=== PATIENT | female | born 1990 | race Two or more races ===

== ENCOUNTER 2022-06-04 15:45 | Emergency (ER) | payer SELFPAY ==
[2022-06-04 17:15] LABS: Urine Bacteria NONE SEEN /hpf (None Seen); Urine Blood 3+ /uL (Negative); Urine Specific Gravity 1.027 (1.001-1.035); Urine WBC 7 /hpf (0 - 5)
[2022-06-04 20:18] LABS: Basophils # (auto) 0.1 10 ^3/uL (0-0.2); Basophils % (auto) 0.6 % (0.0-2.0); Eosinophils # (auto) 0.1 10 ^3/uL (0-0.8); Eosinophils % (auto) 0.9 % (0.0-7.0); Hematocrit 39.8 % (36.0-46.0); Hemoglobin 13.3 g/dL (12.2-16.2); Lymphocytes # (auto) 3.1 10 ^3/uL (0.4-5.4); Lymphocytes % (auto) 30.6 % (10.0-50.0); Mean Corpuscular Hemoglobin 29.8 pg (28.0-32.0); Mean Corpuscular Hgb Conc. 33.4 g/dL (32.0-36.0); Mean Corpuscular Volume 89.4 fL (80.0-100.0); Monocytes # (auto) 0.7 10 ^3/uL (0-1.3); Monocytes % (auto) 6.5 % (0.0-12.0); Neutrophils # (auto) 6.1 10 ^3/uL (1.6-8.6); Neutrophils % (auto) 61.4 % (37.0-80.0); Nucleated Red Blood Cells % 0.1 %; Red Blood Cells 4.45 10^6/uL (4.0-5.20); Red Cell Distribution Width 13.3 % (11.8-14.3)
[2022-06-04 20:31] LABS: Albumin 4.1 g/dL (3.4-5.0); BUN/Creatinine Ratio 24.6; Calcium 8.9 mg/dL (8.5-10.1); Potassium 4.2 mmol/L (3.5-5.1)
[2022-06-04 20:33] LABS: Bilirubin, Total 0.2 mg/dL (0.2-1.0)
[2022-06-04] MEDS ORDERED: MEDR5TAB28 PO (21:54)
[2022-06-04 22:09] VITALS: BP 136/81
== END 2022-06-04 22:11 | disposition home or self-care (01) ==
LOC: ER 15:45
DX: N94.6 Dysmenorrhea, unspecified (principal); R10.2 Pelvic and perineal pain
CPT/HCPCS: 36415; 76856; 80053; 81001; 84702; 85025; 86850; 86900; 86901

== ENCOUNTER 2022-10-22 20:05 | Emergency (ER) | payer MEDICAID, OTHER ==
[~2022-10-22] VITALS: Ht 154.9 cm; Wt 87.1 kg
[~2022-10-22 20:05] MED LIST: MEDR5TAB28 PO
[2022-10-22 20:43] LABS: Basophils # (auto) 0.1 10 ^3/uL (0-0.2); Basophils % (auto) 0.4 % (0.0-2.0); Eosinophils # (auto) 0.1 10 ^3/uL (0-0.8); Eosinophils % (auto) 0.6 % (0.0-7.0); Hematocrit 38.8 % (36.0-46.0); Hemoglobin 12.9 g/dL (12.2-16.2); Lymphocytes % (auto) 22.2 % (10.0-50.0); Mean Corpuscular Hemoglobin 30.5 pg (28.0-32.0); Mean Corpuscular Hgb Conc. 33.4 g/dL (32.0-36.0); Mean Corpuscular Volume 91.2 fL (80.0-100.0); Monocytes # (auto) 0.9 10 ^3/uL (0-1.3); Monocytes % (auto) 6.3 % (0.0-12.0); Neutrophils # (auto) 9.6 10 ^3/uL (1.6-8.6); Neutrophils % (auto) 70.5 % (37.0-80.0); Nucleated Red Blood Cells % 0.2 %; Red Blood Cells 4.25 10^6/uL (4.0-5.20); White Blood Cell 13.6 10^3/uL (4.4-10.8)
[2022-10-22 20:46] LABS: Urine Bacteria FEW /hpf (None Seen); Urine Blood TRACE /uL (Negative); Urine Specific Gravity 1.012 (1.001-1.035); Urine WBC 24 /hpf (0 - 5)
[2022-10-22 21:02] LABS: Albumin 3.6 g/dL (3.4-5.0); Calcium 8.9 mg/dL (8.5-10.1)
[2022-10-22 21:05] LABS: BUN/Creatinine Ratio 17.5 (10.0-20.0); Bilirubin, Total 0.2 mg/dL (0.2-1.0); Total Protein 7.4 g/dL (6.4-8.2)
[2022-10-22] MEDS ORDERED: NITR-87 PO (22:46)
[2022-10-23 00:50] VITALS: BP 125/73
== END 2022-10-23 00:57 | disposition home or self-care (01) ==
LOC: ER 20:05
DX: O20.0 Threatened abortion (principal); N39.0 Urinary tract infection, site not specified; Z3A.01 Less than 8 weeks gestation of pregnancy; Z79.899 Other long term (current) drug therapy
CPT/HCPCS: 36415; 76801; 76817; 80053; 81001; 83690; 84702; 85025

== ENCOUNTER 2022-12-30 23:03 | Emergency (ER) | payer MEDICAID ==
[~2022-12-30] VITALS: Ht 160 cm; Wt 88.0 kg
[~2022-12-30 23:03] MED LIST changes: +NITR-87 PO
[2022-12-31 00:11] LABS: Basophils # (auto) 0.1 10 ^3/uL (0-0.2); Basophils % (auto) 0.7 % (0.0-2.0); Eosinophils # (auto) 0.1 10 ^3/uL (0-0.8); Eosinophils % (auto) 1.2 % (0.0-7.0); Hematocrit 36.3 % (36.0-46.0); Hemoglobin 12.5 g/dL (12.2-16.2); Lymphocytes # (auto) 3.4 10 ^3/uL (0.4-5.4); Lymphocytes % (auto) 28.7 % (10.0-50.0); Mean Corpuscular Hemoglobin 32.3 pg (28.0-32.0); Mean Corpuscular Hgb Conc. 34.5 g/dL (32.0-36.0); Mean Corpuscular Volume 93.5 fL (80.0-100.0); Monocytes # (auto) 0.9 10 ^3/uL (0-1.3); Monocytes % (auto) 7.9 % (0.0-12.0); Neutrophils # (auto) 7.4 10 ^3/uL (1.6-8.6); Neutrophils % (auto) 61.5 % (37.0-80.0); Nucleated Red Blood Cells % 0.1 %; Red Blood Cells 3.88 10^6/uL (4.0-5.20); Red Cell Distribution Width 13.5 % (11.8-14.3); White Blood Cell 11.9 10^3/uL (4.4-10.8)
[2022-12-31 00:27] LABS: Alanine Aminotransferase 28 U/L (7-40); Albumin 4.4 g/dL (3.2-4.8); Alkaline Phosphatase 74 U/L (46-116); Anion Gap 5 (5-15); Aspartate Aminotransferase 14 U/L (13-40); BUN/Creatinine Ratio 10.2 (10.0-20.0); Bilirubin, Total 0.2 mg/dL (0.2-1.0); Blood Urea Nitrogen 5 mg/dL (9-23); Calcium 9.2 mg/dL (8.7-10.4); Carbon Dioxide 23 mmol/L (20-30); Chloride 107 mmol/L (98-107); Glucose 109 mg/dL (74-106); Lipase 43 U/L (12-53); Potassium 4.1 mmol/L (3.5-5.1); Sodium 135 mmol/L (136-145)
[2022-12-31 00:28] LABS: Total Protein 6.5 g/dL (5.7-8.2)
[2022-12-31 01:07] LABS: Urine Bacteria FEW /hpf (None Seen); Urine Blood Negative /uL (Negative); Urine Clarity Clear (Clear); Urine Mucus FEW (None Seen); Urine Protein, UAD Negative (Negative); Urine Specific Gravity 1.006 (1.001-1.035); Urine Urobilinogen Normal (Negative); Urine WBC <1 /hpf (0 - 5)
[2022-12-31 01:08] LABS: Urine Color Straw (Yellow)
[2022-12-31] MEDS ORDERED: ACETAMINOPHEN 500 MG TAB PO ONE (07:00)
[2022-12-31 08:00] VITALS: PULSE 69; RESP 18; TEMP 98.2; O2SAT 98
[2022-12-31] MEDS ORDERED: SODIUM CHLORIDE 0.9% 1,000 ML IV ONE (08:45)
[2022-12-31 10:00] VITALS: BP 109/64; PULSE 70; RESP 13; O2SAT 100
== END 2022-12-31 10:36 | disposition home or self-care (01) ==
LOC: ER 23:03
DX: O26.892 Other specified pregnancy related conditions, second trimester (principal); R10.2 Pelvic and perineal pain; R30.0 Dysuria; R35.0 Frequency of micturition; Z79.899 Other long term (current) drug therapy; Z3A.18 18 weeks gestation of pregnancy
CPT/HCPCS: 36415; 76805; 76817; 80053; 81001; 83690; 84702; 85025; 96360; 99284; J7030

== ENCOUNTER 2023-04-16 14:30 | Observation (INO) | payer MEDICAID ==
[2023-04-16] MEDS ORDERED: PREN1TAB71 OR (14:52)
[2023-04-16 16:33] LABS: Basophils # (auto) 0 10 ^3/uL (0-0.2); Basophils % (auto) 0.4 % (0.0-2.0); Eosinophils # (auto) 0.1 10 ^3/uL (0-0.8); Eosinophils % (auto) 1.1 % (0.0-7.0); Hemoglobin 12.3 g/dL (12.2-16.2); Lymphocytes # (auto) 2.1 10 ^3/uL (0.4-5.4); Lymphocytes % (auto) 20.7 % (10.0-50.0); Mean Corpuscular Hemoglobin 32.8 pg (28.0-32.0); Mean Corpuscular Hgb Conc. 34.3 g/dL (32.0-36.0); Mean Corpuscular Volume 95.7 fL (80.0-100.0); Monocytes # (auto) 0.9 10 ^3/uL (0-1.3); Monocytes % (auto) 9.2 % (0.0-12.0); Neutrophils # (auto) 6.8 10 ^3/uL (1.6-8.6); Neutrophils % (auto) 68.6 % (37.0-80.0); Red Blood Cells 3.76 10^6/uL (4.0-5.20); Red Cell Distribution Width 13.3 % (11.8-14.3); White Blood Cell 9.9 10^3/uL (4.4-10.8)
[2023-04-16 16:51] LABS: Protein, Urine 8.6 mg/dL (0.0-11.9)
[2023-04-16 16:54] LABS: Creatinine, Urine 40.41 mg/dL (30.0-125.0); Urine Protein/Creatinine Ratio 0.21
[2023-04-16 16:56] LABS: Chloride 107 mmol/L (98-107)
[2023-04-16 16:57] LABS: INR 0.94 (0.9-1.15); Partial Thromboplastin Time 29.3 SEC (24.5-34.5); Prothrombin Time 9.9 sec (9.3-11.8)
[2023-04-16 17:05] LABS: Urine Bacteria FEW /hpf (None Seen); Urine Blood Negative /uL (Negative); Urine Clarity Clear (Clear); Urine Color Yellow (Yellow); Urine Protein, UAD Negative (Negative); Urine Specific Gravity 1.013 (1.001-1.035); Urine Urobilinogen Normal (Negative); Urine WBC 1 /hpf (0 - 5); Urine pH 6.5 (5.0-8.0)
[2023-04-16 17:09] LABS: Uric Acid 3.3 mg/dL (3.1-7.8)
[2023-04-16 17:16] LABS: Alanine Aminotransferase 20 U/L (7-40); Albumin 3.9 g/dL (3.2-4.8); Alkaline Phosphatase 147 U/L (46-116); Anion Gap 8 (5-15); Aspartate Aminotransferase 17 U/L (13-40); BUN/Creatinine Ratio 11.1 (10.0-20.0); Bilirubin, Total 0.2 mg/dL (0.2-1.0); Blood Urea Nitrogen 5 mg/dL (9-23); Calcium 8.9 mg/dL (8.7-10.4); Carbon Dioxide 22 mmol/L (20-30); Glucose 70 mg/dL (74-106); Potassium 3.8 mmol/L (3.5-5.1); Sodium 137 mmol/L (136-145); Total Protein 6.5 g/dL (5.7-8.2)
== END 2023-04-16 17:41 | disposition home or self-care (01) ==
LOC: LDRP 14:30
PROVIDERS: ADMIT Obstetrics & Gynecology; ATTEND Obstetrics & Gynecology
DX: O26.893 Other specified pregnancy related conditions, third trimester (principal); R03.0 Elevated blood-pressure reading, without diagnosis of hypertension; Z3A.32 32 weeks gestation of pregnancy; Z79.899 Other long term (current) drug therapy
CPT/HCPCS: 36415; 59025; 76818; 80053; 81001; 81002; 82570; 84156; 84550; 85025; 85610; 85730; G0378

== ENCOUNTER 2023-05-26 19:58 | Observation (INO) | payer MEDICAID ==
[~2023-05-26 19:58] MED LIST changes: +PREN1TAB71 OR
== END 2023-05-26 21:11 | disposition home or self-care (01) ==
LOC: LDRP 19:58
PROVIDERS: ADMIT Obstetrics & Gynecology; ATTEND Obstetrics & Gynecology
DX: O47.1 False labor at or after 37 completed weeks of gestation (principal); O62.9 Abnormality of forces of labor, unspecified; O26.893 Other specified pregnancy related conditions, third trimester; R10.2 Pelvic and perineal pain; Z3A.38 38 weeks gestation of pregnancy
CPT/HCPCS: 59025; 81002; 94760; G0378

== ENCOUNTER 2023-05-28 17:50 | Observation (INO) | payer MEDICAID ==
[~2023-05-28] VITALS: Ht 167.6 cm; Wt 104.3 kg
[2023-05-28 18:48] LABS: Basophils # (auto) 0 10 ^3/uL (0-0.2); Basophils % (auto) 0.2 % (0.0-2.0); Eosinophils # (auto) 0.1 10 ^3/uL (0-0.8); Eosinophils % (auto) 0.4 % (0.0-7.0); Hematocrit 38.6 % (36.0-46.0); Hemoglobin 12.8 g/dL (12.2-16.2); Lymphocytes # (auto) 1.3 10 ^3/uL (0.4-5.4); Lymphocytes % (auto) 11.1 % (10.0-50.0); Mean Corpuscular Hemoglobin 31.7 pg (28.0-32.0); Mean Corpuscular Hgb Conc. 33.1 g/dL (32.0-36.0); Mean Corpuscular Volume 95.9 fL (80.0-100.0); Monocytes # (auto) 0.8 10 ^3/uL (0-1.3); Monocytes % (auto) 6.2 % (0.0-12.0); Neutrophils # (auto) 9.9 10 ^3/uL (1.6-8.6); Neutrophils % (auto) 82.1 % (37.0-80.0); Red Blood Cells 4.03 10^6/uL (4.0-5.20); Red Cell Distribution Width 13.5 % (11.8-14.3); White Blood Cell 12.1 10^3/uL (4.4-10.8)
[2023-05-28 19:02] LABS: Protein, Urine 26.1 mg/dL (0.0-11.9)
[2023-05-28 19:03] LABS: INR 0.94 (0.9-1.15); Prothrombin Time 9.9 sec (9.3-11.8)
[2023-05-28 19:05] LABS: Creatinine, Urine 201.35 mg/dL (30.0-125.0); Urine Protein/Creatinine Ratio 0.13
[2023-05-28 19:08] LABS: Alanine Aminotransferase 22 U/L (7-40); Albumin 3.8 g/dL (3.2-4.8); Alkaline Phosphatase 205 U/L (46-116); Anion Gap 8 (5-15); Aspartate Aminotransferase 19 U/L (13-40); Bilirubin, Total 0.4 mg/dL (0.2-1.0); Calcium 8.6 mg/dL (8.7-10.4); Carbon Dioxide 19 mmol/L (20-30); Chloride 109 mmol/L (98-107); Glucose 96 mg/dL (74-106); Potassium 3.8 mmol/L (3.5-5.1); Sodium 136 mmol/L (136-145); Total Protein 6.3 g/dL (5.7-8.2); Uric Acid 4.3 mg/dL (3.1-7.8)
[2023-05-28 19:17] LABS: BUN/Creatinine Ratio 17.6 (10.0-20.0); Blood Urea Nitrogen 9 mg/dL (9-23)
[2023-05-28] MEDS ORDERED: LACTATED RINGER'S 500 ML IV ONE (20:00)
[2023-05-28 21:11] LABS: Rapid Influenza A Negative (Negative); Rapid Influenza B Negative (Negative)
[2023-05-28 21:12] LABS: COVID19 ANTIGEN SOFIA FIA NEGATIVE (NEGATIVE)
== END 2023-05-28 21:31 | disposition home or self-care (01) ==
LOC: LDRP 17:50
PROVIDERS: ADMIT Obstetrics & Gynecology; ATTEND Obstetrics & Gynecology
DX: O36.8130 Decreased fetal movements, third trimester, not applicable or unspecified (principal); Z20.822 Contact with and (suspected) exposure to COVID-19; O62.9 Abnormality of forces of labor, unspecified; O26.893 Other specified pregnancy related conditions, third trimester; R10.11 Right upper quadrant pain; Z3A.38 38 weeks gestation of pregnancy
CPT/HCPCS: 36415; 59025; 76705; 76818; 80053; 81002; 82570; 84156; 84550; 85025; 85610; 85730; 87426; 87804; 94760; G0378

== ENCOUNTER 2025-01-02 07:16 | Day surgery (SDC) | payer MEDICAID ==
[~2025-01-02] VITALS: Ht 165.1 cm; Wt 85.3 kg
[2025-01-02] MEDS ORDERED: POVIDONE IODINE 10 % TOPICAL OINT 30GM TOP ONE (09:33)
[2025-01-02] MEDS ORDERED: PROPOFOL 10 MG/ML 20 ML IV ONE (09:34)
[2025-01-02] MEDS ORDERED: MIDAZOLAM HCL 2MG/2ML 2ml VIAL (1mg/ml) ONE (09:34)
[2025-01-02] MEDS ORDERED: KETAMINE 50mg/ML 1ml syringe ONE (09:34)
[2025-01-02] MEDS ORDERED: GLYCOPYRROLATE 0.2 MG/ML 1ML VIAL ONE (09:34)
[2025-01-02] MEDS ORDERED: KETOROLAC TROMETH 30 MG/ML 1ML VIAL ONE (09:34)
[2025-01-02] MEDS ORDERED: ONDANSETRON HCL 4 MG/2 ML VIAL ONE (09:34)
[2025-01-02] MEDS: ceFAZolin 2 GM/D5W50ml 50 ML IV ONE (09:49)
[2025-01-02] MEDS: BUPIVACAINE 0.25% INJ 50ML VIAL ONE (10:05)
[2025-01-02] MEDS: LIDOCAINE W/ EPINEPHRINE 1% 20ML VIAL ONE (10:05)
[2025-01-02] MEDS ORDERED: fentaNYL CITRATE 100 MCG/2 ML VL ONE (10:10)
[2025-01-02 10:19] VITALS: PULSE 80; RESP 16; TEMP 98.2; O2SAT 100
[2025-01-02 10:30] VITALS: PULSE 68; RESP 13; O2SAT 100
--- NOTE | 2025-01-02 10:31 | DVHOP2 ---
Operative Report - 2 Report Details Date: 01/02/25 Preop Diagnosis: Left calf mass Postop Diagnosis: Same Surgeon: Pranav Gerardo MD Anesthesiologist: dai Anesthesia: Local Consent: The patient was informed of the risks and benefits of the procedure. These include but are not limited to complications of anesthesia, postoperative infection, incomplete relief of symptoms, recurrence of symptoms, damage to blood vessels, nerves and tendons, deep venous thrombosis, pulmonary embolism and possible need for repeat surgery in the future. Estimated Blood Loss: Minimal Indications for Surgery: Left calf mass Name of Procedure Performed Excision of left calf mass Procedure Details Procedure Details: Patient was identified in the preop hold area. The left calf mass was marked. Patient was brought to the operating room placed operating table supine position after adequate induction of anesthesia antibiotics to time-out the left calf was prepped and draped in normal surgical fashion. A two cm incision was made the mass was identified in the subcutaneous tissue was a hard 5 mm mass which was excised and sent off for pathology. The wound was irrigated out. Dermal layer was closed with 2-0 Vicryl suture followed by skin closure with 4-0 Monocryl subcuticular suture followed by Dermabond. Sterile dressing was applied. Sponge and needle counts were correct. Patient was taken to the recovery room in stable condition. Condition Good Disposition Home PRANAV GERARDO Jr., MD Jan 02, 2025 10:31
[2025-01-02] MEDS: HYDROmorphone HCL 2 MG/ML VL/or syr IV PRN (11:14)
[2025-01-02 12:04] VITALS: PULSE 59; RESP 17; O2SAT 98
[2025-01-02 12:25] VITALS: BP 123/89
== END 2025-01-02 12:30 | disposition home or self-care (01) ==
LOC: SUR 07:16
PROVIDERS: ATTEND Surgery Vascular Surgery
DX: R22.42 Localized swelling, mass and lump, left lower limb (principal); D21.22 Benign neoplasm of connective and other soft tissue of left lower limb, including hip; F41.9 Anxiety disorder, unspecified; Z86.2 Personal history of diseases of the blood and blood-forming organs and certain disorders involving the immune mechanism; Z88.8 Allergy status to other drugs, medicaments and biological substances
CPT/HCPCS: 27618; 88305; J0690; J1171; J1885; J2250; J2405; J2704; J3010; J3490